=== PATIENT | female | born 1975 | race Caucasian/White ===

== ENCOUNTER 2021-03-31 16:15 | Emergency (ER) | payer OTHER ==
[~2021-03-31] VITALS: Ht 170.2 cm; Wt 102.1 kg
[2021-03-31 17:02] VITALS: BP 147/88
--- NOTE | 2021-03-31 17:05 | NUR ---
PT TOLD TO WAIT IN LOBBY.
--- NOTE | 2021-03-31 17:19 | NUR ---
PT TAKEN TO [facility]
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
[2021-03-31] MEDS ORDERED: KETOROLAC 30 MG/ML VIAL IM ONE (17:25)
[2021-03-31] MEDS ORDERED: CYCLOBENZAPRINE 10 MG TAB PO ONE (17:25)
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
[2021-03-31] MEDS ORDERED: LIDO1ADH47 TP (19:10)
[2021-03-31] MEDS ORDERED: METH-1681 PO (19:10)
[2021-03-31] MEDS ORDERED: NAPR-54 PO (19:10)
== END 2021-03-31 19:05 | disposition home or self-care (01) ==
LOC: MED 16:15
DX: S39.012A Strain of muscle, fascia and tendon of lower back, initial encounter (principal); V89.2XXA Person injured in unspecified motor-vehicle accident, traffic, initial encounter; Y93.89 Activity, other specified; Y92.89 Other specified places as the place of occurrence of the external cause; Y99.8 Other external cause status
CPT/HCPCS: 72072; 72110; 81025; 96372; 99284; J1885